=== PATIENT | female | born 1945 | race Caucasian/White ===

== ENCOUNTER 2017-06-11 11:56 | Outpatient (CLI) | payer MEDICARE, OTHER ==
--- NOTE | 2017-06-12 15:25 | Mammography Report ---
DIGITAL SCREENING MAMMOGRAM: 06/11/2017 CLINICAL INDICATION: A 71-year-old for screening. COMPARISON: 06/2014, 05/2013, 01/2012, 12/2010 TECHNIQUE: Routine CC and MLO projections were obtained of the breasts. FINDINGS: Parenchymal tissue within the breasts is predominantly fatty replaced. There are no domina nt masses, suspicious microcalcifications, or secondary signs of malignancy. In comparison to the pre vious studies, there are no significant changes. IMPRESSION: NO MAMMOGRAPHIC EVIDENCE OF MALIGNANCY. NO SIGNIFICANT INTERVAL CHANGES. RECOMMENDATION: Screening mammography is recommended annually. BIRADS category 1 - negative. STANDARD QUALIFYING STATEMENTS 1. This examination was reviewed with the aid of Computed-Aided Detection (CAD). 2. A negative or benign imaging report should not delay biopsy if clinically suspicious findings are present. Consider surgical consultation if warranted. More than 5% of cancers are not identified by i maging. 3. Dense breasts may obscure an underlying neoplasm. JOB #: [id number] EXT JOB #:[id number]
== END 2017-06-11 11:57 | disposition home or self-care (01) ==
LOC: DI.N 11:56
PROVIDERS: ATTEND Nurse Practitioner Gerontology
DX: Z12.31 Encounter for screening mammogram for malignant neoplasm of breast (principal)
CPT/HCPCS: 77067

== ENCOUNTER 2017-06-18 07:33 | Emergency (ER) | payer MEDICARE, OTHER ==
[2017-06-18] MEDS ORDERED: SODIUM CHLORIDE 0.9% 1,000 ML IV ONE (08:11)
[2017-06-18] MEDS ORDERED: ONDANSETRON 4 MG/2 ML VIAL IVP STA (08:11)
[2017-06-18] MEDS ORDERED: LIDOCAINE VISCOUS 2% 15 ML UDC MM STA ×2 (08:12→09:43)
[2017-06-18] MEDS ORDERED: MAG HYDROX/AL HYDROX/SIMETH 30 ML UDC PO STA ×2 (08:12→09:43)
--- NOTE | 2017-06-18 08:14 | ED Physician Documentation ---
PD HPI ABD PAIN - Stated complaint Stated Complaint: ABD PX - Chief complaint Chief Complaint: Abd Pain - History obtained from History obtained from: Patient, Family - History of Present Illness Timing - onset: Enter time (1899), Last night Timing - duration: Hours Timing - details: Abrupt onset, Still present Quality: Sharp, Pain Location: Epigastric Improved by: Other (nothing) Worsened by: Palpation Associated symptoms: Nausea, Vomiting, Hematemesis Similar symptoms before: No diagnosis Recently seen: Not recently seen - Additional information Additional information: 71-year-old female with a history of osteoarthritis has developed epigastric pain beginning at 7:00 last night. She states that she ate dinner about 630 and she also indicates that earlier in the day she had taken some Aleve. She has had a similar episode of pain about 2 weeks ago and this resolves with Tums. She tried a Tums last night without relief. The pain is severe she rates it as a 10 out of 10.She does have known gallstones but she does not have prior episodes of gallstone pain. Review of Systems Constitutional: denies: Fever Eyes: denies: Decreased vision Ears: denies: Ear pain Nose: denies: Congestion Throat: denies: Sore throat Cardiac: denies: Chest pain / pressure, Palpitations Respiratory: denies: Dyspnea, Cough GI: reports: Abdominal Pain, Nausea, Vomiting : denies: Dysuria, Frequency Skin: denies: Rash Musculoskeletal: reports: Extremity pain. denies: Neck pain, Back pain Neurologic: denies: Generalized weakness, Focal weakness, Numbness PD PAST MEDICAL HISTORY - Past Medical History Past Medical History: No - Past Surgical History Past Surgical History: Yes - Present Medications Home Medications: Ambulatory Orders Medication Instructions Recorded Confirmed Calcium Carbonate [[id number]] 06/18/17 Sucralfate [Carafate] 1 gm PO ACHS #300 ml 06/18/17 - Allergies Allergies/Adverse Reactions: Allergies Allergy/AdvReac Type Severity Reaction Status Date / Time No Known Drug Allergies Allergy Verified 06/18/17 07:51 - Social History Does the pt smoke?: No Smoking Status: Never smoker - Immunizations Immunizations are current?: Yes PD ED PE NORMAL - Vitals Vital signs reviewed: Yes (Hypertensive) - General General: No acute distress, Well developed/nourished, Other (The patient does not have any facial expression of pain.) - HEENT HEENT: Atraumatic, PERRL - Neck Neck: Supple, no meningeal sign - Cardiac Cardiac: RRR, No murmur - Respiratory Respiratory: No respiratory distress, Clear bilaterally - Abdomen Abdomen: Soft, Other (Mild epigastric tenderness and no right upper quadrant tenderness to palpation.) - Back Back: No CVA TTP, No spinal TTP - Derm Derm: Normal color, Warm and dry, No rash - Extremities Extremities: No deformity, No edema - Neuro Neuro: No motor deficit, No sensory deficit - Psych Psych: Normal mood, Normal affect Results - Vitals Vitals: Vital Signs - 24 hr 06/18/17 06/18/17 06/18/17 07:51 08:58 10:09 Temperature 36.6 C Heart Rate 87 68 90 Respiratory 16 14 14 Rate Blood Pressure 162/90 H 151/78 H 134/70 H O2 Saturation 97 100 97 Oxygen O2 Source Room air - EKG (time done) 0835 Rate: Rate (enter#) (79) Rhythm: NSR Intervals: Prolonged QT (borderline) Compare to prior EKG: Unchanged from prior EKG (09-12-16) Computer interpretation: Agree with computer - Labs Labs: Laboratory Tests 06/18/17 06/18/17 06/18/17 08:30 08:30 08:30 WBC 12.6 H RBC 4.74 Hgb 13.7 Hct 40.1 MCV 84.6 MCH 28.8 MCHC 34.1 RDW 13.4 Plt Count 255 MPV 7.9 Neut # 10.0 H Lymph # 1.3 L Bullitt # 1.1 H Eos # 0.0 Baso # 0.1 Absolute Nucleated RBC 0.00 Nucleated RBC % 0.0 Sodium 136 Potassium 3.6 Chloride 100 L Carbon Dioxide 26 Anion Gap 10.0 BUN 10 Creatinine 0.6 Estimated GFR (MDRD) 99 Glucose 106 H Calcium 9.7 Total Bilirubin 0.8 AST 23 ALT 20 Alkaline Phosphatase 63 Troponin I < 0.04 Total Protein 7.0 Albumin 4.3 Globulin 2.7 Albumin/Globulin Ratio 1.6 Lipase 21 L Procedures - Bedside sono Bedside sono by EMP: With use of bedside ultrasound the right upper quadrant is examined the patient does have multiple stones in the gallbladder wall is not thickened the there is no pericholecystic fluid and the gallbladder is sonographically nontender. - IVC sono (time) 0814 Bedside IVC sono: IVC measures (cm) (0.98), Dehydration PD MEDICAL DECISION MAKING - ED course Complexity details: reviewed old records, reviewed results, re-evaluated patient , considered differential, d/w patient, d/w family ED course: 71-year-old female who takes some Naprosyn periodically for osteoarthritis appears to have had nonsteroidal induced gastritis. She does get minimal relief with the initial viscous lidocaine Mylanta and more substantial relief with the second dose that included Carafate as well. She is given pantoprazole 40 mg intravenously and instructed to discontinue the use of the Naprosyn and we will put her on some Carafate and Nexium. Departure - Departure Disposition: 01 Home, Self Care Clinical Impression: Gastritis Qualifiers: Gastritis type: other gastritis Chronicity: acute Gastritis bleeding: with bleeding Qualified Code(s): K29.01 - Acute gastritis with bleeding Condition: Stable Instructions: ED PUD Vs Gastritis Follow-Up: Kathia Mejia ARNP [Primary Care Provider] - Prescriptions: Sucralfate [Carafate] 1 gm PO ACHS #300 ml Comments: Today it appears your abdominal pain is related to taking Naprosyn. Stop taking the Naprosyn for now and take Carafate before meals and at bedtime for the next 10 days. In addition take a medication to reduce the acid in her stomach. There are a number of medications available over the counter including Pepcid AC and Nexium.
[2017-06-18] MEDS ORDERED: MAG HYDROX/AL HYDROX/SIMETH 30 ML UDC ONE ×2 (08:31→09:54)
[2017-06-18] MEDS ORDERED: LIDOCAINE VISCOUS 2% 15 ML UDC MM ONE ×2 (08:31→10:00)
[2017-06-18] MEDS ORDERED: ONDANSETRON 4 MG/2 ML VIAL ONE (08:31)
[2017-06-18 08:47] LABS: BASOPHILS # (AUTO) 0.1 10^3/uL (0.0-0.1); BASOPHILS % (AUTO) 0.5 %; EOSINOPHILS % (AUTO) 0.4 %; HCT - HEMATOCRIT 40.1 % (37.0-47.0); HGB - HEMOGLOBIN 13.7 g/dL (12.0-16.0); LYMPHOCYTES # (AUTO) 1.3 10^3/uL (1.5-3.5); LYMPHOCYTES % (AUTO) 10.4 %; MEAN CORPUSCULAR HEMOGLOBIN 28.8 pg (27.0-31.0); MEAN CORPUSCULAR HGB CONC 34.1 g/dL (32.0-36.0); MEAN CORPUSCULAR VOLUME 84.6 fL (81.0-99.0); MEAN PLATELET VOLUME 7.9 fL (7.9-10.8); MONOCYTES # (AUTO) 1.1 10^3/uL (0.0-1.0); NEUTROPHILS % (AUTO) 79.7 %; RED BLOOD COUNT 4.74 10^6/uL (4.20-5.40); RED CELL DISTRIBUTION WIDTH 13.4 % (12.0-15.0); UNCORRECTED WHITE BLOOD COUNT 12.6 x10^3/uL; WHITE BLOOD COUNT 12.6 x10^3/uL (4.8-10.8)
[2017-06-18 08:58] LABS: ALBUMIN/GLOBULIN RATIO 1.6 (1.0-2.2); BILIRUBIN,TOTAL 0.8 mg/dL (0.2-1.0); CALCIUM 9.7 mg/dL (8.5-10.3); CREATININE 0.6 mg/dL (0.4-1.0); POTASSIUM 3.6 mmol/L (3.5-5.0)
[2017-06-18] MEDS ORDERED: PHENobarbital 65 MG/ML VIAL IVP STA (09:20)
[2017-06-18] MEDS ORDERED: SUCRALFATE 1 GM/10 ML UDC PO STA (09:43)
[2017-06-18] MEDS ORDERED: PANTOPRAZOLE 40 MG VIAL IVP STA (09:43)
[2017-06-18] MEDS ORDERED: SUCRALFATE 1 GM/10 ML UDC ONE (09:54)
[2017-06-18] MEDS ORDERED: LIDOCAINE 2% 10 ML MDV ONE (09:54)
[2017-06-18] MEDS ORDERED: PANTOPRAZOLE 40 MG VIAL ONE (09:55)
[2017-06-18 10:14] VITALS: BP 134/70
[2017-06-18] MEDS ORDERED: SODIUM CHLORIDE 0.9% IV SCH (11:00)
[2017-06-18] MEDS ORDERED: PHENOBARBITAL IV SCH (11:00)
== END 2017-06-18 10:53 | disposition home or self-care (01) ==
LOC: ED 07:33
DX: K29.01 Acute gastritis with bleeding (principal); M19.90 Unspecified osteoarthritis, unspecified site
CPT/HCPCS: 36415; 80053; 83690; 84484; 85025; 93005; 96361; 96374; 96375; 99284; A9270

== ENCOUNTER 2017-09-10 08:00 | Outpatient (CLI) | payer MEDICARE, OTHER ==
[2017-09-10 13:05] LABS: CHOL/HDL RATIO 3.3 (<4.4); CHOLESTEROL 246 mg/dL; HDL CHOLESTEROL 74 mg/dL; LDL CHOLESTEROL,CALCULATED 138 mg/dL; LDL/HDL RATIO 1.9 (<4.4); VLDL CHOLESTEROL 34 mg/dL
== END 2017-09-10 08:01 | disposition home or self-care (01) ==
LOC: LAB.N 08:00
PROVIDERS: ATTEND Nurse Practitioner Gerontology
DX: E78.5 Hyperlipidemia, unspecified (principal); Z13.220 Encounter for screening for lipoid disorders
CPT/HCPCS: 36415; 80061; 83721

== ENCOUNTER 2018-02-24 11:54 | Outpatient (CLI) | payer MEDICARE, OTHER ==
--- NOTE | 2018-02-24 12:58 | XRAY Report ---
Procedure Date: 02/24/2018 Accession Number: [id number] / [id number] Procedure: XRN - Knee 3 View LT CPT Code: FULL RESULT: EXAM: Knee 3 View LT DATE: 02/24/2018 12:27 PM CLINICAL HISTORY: CERVICALGIA, KNEE JOINT PX LEFT COMPARISON: 10/01/2010, MRI 10/10/2010 TECHNIQUE: 3 views. FINDINGS: Bones: Medial left knee hemiarthroplasty. No evidence of fracture or hardware complication. 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 Joints: Medial left knee hemiarthroplasty. Moderate degenerative changes in the lateral and patellofemoral compartments. Soft Tissues: Normal. No soft tissue swelling. IMPRESSION: Postoperative changes of medial left hemiarthroplasty. Moderate degenerative changes in the other compartments. No evidence of fracture or hardware complication. RADIA
--- NOTE | 2018-02-24 13:00 | XRAY Report ---
Procedure Date: 02/24/2018 Accession Number: [id number] / [id number] Procedure: XRN - Cervical Spine 2 View CPT Code: FULL RESULT: EXAM: Cervical Spine 2 View DATE: 02/24/2018 12:27 PM CLINICAL HISTORY: cervicalgia COMPARISON: None. TECHNIQUE: 3 views. FINDINGS: Alignment: Normal. No spondylolisthesis or scoliosis. Bones: The cervical vertebral bodies and posterior elements are well visualized from the skull base through C7-T1. No fractures or bone lesions. Disks: Degenerative disc disease, mild. Facets: Moderate facet arthropathy. Soft Tissues: Normal. No prevertebral soft tissue swelling. The visualized lung apices are clear. IMPRESSION: Mild degenerative disc disease and moderate facet arthropathy. No evidence of fracture. RADIA
== END 2018-02-24 11:55 | disposition home or self-care (01) ==
LOC: DI.N 11:54
PROVIDERS: ATTEND Nurse Practitioner
DX: M50.30 Other cervical disc degeneration, unspecified cervical region (principal); M25.562 Pain in left knee; Z96.652 Presence of left artificial knee joint
CPT/HCPCS: 72040

== ENCOUNTER 2018-03-03 11:33 | Outpatient (CLI) | payer MEDICARE, OTHER | END 2018-03-03 11:34 | disposition home or self-care (01) | LOC: LAB 11:33 | PROVIDERS: ATTEND Nurse Practitioner Gerontology | DX: R21 Rash and other nonspecific skin eruption (principal); T63.4 Toxic effect of venom of other arthropods | CPT/HCPCS: 36415; 81599; 87798 ==

== ENCOUNTER 2018-06-15 11:27 | Outpatient (CLI) | payer MEDICARE, OTHER ==
--- NOTE | 2018-06-16 14:12 | Mammography Report ---
Reason: SCREENING MAMMO Procedure Date: 06/15/2018 Accession Number: [id number] / [id number] Procedure: MGN - Screening Mammo Dig Bilat CPT Code: FULL RESULT: EXAM: Screening Mammo Dig Bilat DATE: 06/15/2018 11:46 AM CLINICAL HISTORY: Routine screening TECHNIQUE: Bilateral CC and MLO views were obtained. COMPARISON: 06/11/2017, 07/14/2014, 05/28/2013 and 02/21/2012 FINDINGS: There is extensive fatty replacement of the breast tissue. There is no interval change. No suspicious masses, clustered microcalcifications, or regions of architectural distortion are identified. IMPRESSION: Negative examination RECOMMENDATION: Routine annual screening unless otherwise clinically indicated. BIRADS CATEGORY 1: Negative STANDARD QUALIFYING STATEMENTS: 1. This examination was reviewed with the aid of Computer-Aided Detection (CAD). 2. A negative or benign imaging report should not delay biopsy if clinically suspicious findings are present. Consider surgical consultation if warrented. More than 5% of cancers are not identified by imaging. 3. Dense breasts may obscure an underlying neoplasm.
== END 2018-06-15 11:28 | disposition home or self-care (01) ==
LOC: DI.N 11:27
DX: Z12.31 Encounter for screening mammogram for malignant neoplasm of breast (principal)
CPT/HCPCS: 77067

== ENCOUNTER 2019-07-09 10:24 | Outpatient (CLI) | payer MEDICARE, OTHER ==
--- NOTE | 2019-07-09 10:56 | Mammography Report ---
Reason: ROUTINE MAMMO Procedure Date: 07/09/2019 Accession Number: [id number] / [id number] Procedure: MGN - Screening Mammo Dig Bilat CPT Code: Final Report FULL RESULT: EXAM: Screening Mammo Dig Bilat DATE: 07/09/2019 10:49 AM CLINICAL HISTORY: Routine screening. No reported personal history of breast cancer. History of breast cancer cousin age 56. TECHNIQUE: (B) - Bilateral CC and MLO views were obtained. COMPARISON: 06/15/2018 through 05/28/2013. PARENCHYMAL PATTERN: (A) - The breasts demonstrate scattered fibroglandular densities bilaterally. FINDINGS: Bilateral breasts: There are no suspicious masses, calcifications, or areas of distortion. IMPRESSION: Negative examination. BI-RADS category 1. RECOMMENDATION: (ANNUAL) - Recommend routine annual screening mammography. BI-RADS CATEGORY: (1) - Negative. STANDARD QUALIFYING STATEMENTS: 1. This examination was not reviewed with the aid of Computer-Aided Detection (CAD). 2. A negative or benign imaging report should not preclude biopsy if clinically suspicious findings are present. 3. Dense breasts may obscure an underlying neoplasm. 4. This examination was reviewed without the aid of 3D breast imaging (tomosynthesis).
== END 2019-07-09 10:25 | disposition home or self-care (01) ==
LOC: DI.N 10:24
DX: Z12.31 Encounter for screening mammogram for malignant neoplasm of breast (principal); Z80.3 Family history of malignant neoplasm of breast
CPT/HCPCS: 77067

== ENCOUNTER 2020-12-08 08:13 | Outpatient (CLI) | payer MEDICARE, OTHER ==
--- NOTE | 2020-12-13 14:23 | DEXA Report ---
PROCEDURE: Dexa Spine and/or Hip INDICATIONS: MENOPAUSE TECHNIQUE: Dual energy x-ray absorptiometry (DXA) was performed on a [employer] System. Regions measur ed are the AP Spine, femoral neck, and if needed forearm. COMPARISON: None. FINDINGS: Lumbar Spine: Bone Mineral Density 0.923 g/cm/cm,T score -2.1, osteopenia Left Hip: Bone Mineral Density 0.89 g/cm/cm,T score -1.0, low normal Left Femoral Neck: Bone Mineral Density 0.815 g/cm/cm, T score -1.6, osteopenia (T score greater or equal to -1.0: NORMAL) (T score from -1.1 to -2.4: OSTEOPENIA) (T score less than or equal to -2.5 to: OSTEOPOROSIS) Impression: Osteopenia Patients with diagnosis of osteoporosis or osteopenia should have regular bone mineral density assess ment. For those eligible for Medicare, routine testing is allowed once every 2 years. Testing frequ ency can be increased for patients who have rapidly progressing disease or for those who are receivin g medical therapy to restore bone mass. Reviewed by: James Heath MD on 12/08/2020 9:17 AM PDT Approved by: James Heath MD on 12/08/2020 9:17 AM PDT Station ID: [id number]
== END 2020-12-08 08:14 | disposition home or self-care (01) ==
LOC: DI 08:13
PROVIDERS: ATTEND Family Medicine
DX: M85.89 Other specified disorders of bone density and structure, multiple sites (principal)

== ENCOUNTER 2020-12-08 08:16 | Outpatient (CLI) | payer MEDICARE, OTHER ==
--- NOTE | 2020-12-11 09:24 | Mammography Report ---
BILATERAL DIGITAL SCREENING MAMMOGRAM 3D/2D: 12/08/2020 CLINICAL: Routine screening. Comparison is made to exams dated: 07/09/2019 mammogram, 06/15/2018 mammogram, 06/11/2017 mammogram, 07/14/2014 mammogram, and 05/28/2013 mammogram - [facility]. The tissue of both br easts is predominantly fatty. No significant masses, calcifications, or other findings are seen in either breast. There has been no significant interval change. IMPRESSION: NEGATIVE There is no mammographic evidence of malignancy. A 1 year screening mammogram is recommended. This exam was interpreted at Station ID: [id number]. NOTE: For mammograms, a report in lay terms will be sent to the patient. Approximately 15% of breast malignancies will not be visualized mammographically. In the management of a palpable breast mass, a negative mammogram must not discourage biopsy of a clinically suspicious lesion. Electronically Signed By: Alfred Christianson M.D. slc/penrad:12/08/2020 11:16:31 ACR BI-RADS Category 1: Negative 3341F PARENCHYMAL PATTERN: (F) - The breast(s) demonstrate(s) diffuse fatty replacement. BI-RADS CATEGORY: (1) - 1 RECOMMENDATION: (ANNUAL) - Recommend routine annual screening mammography. [id number] 1 year screening LATERALITY: (B)
== END 2020-12-08 08:17 | disposition home or self-care (01) ==
LOC: DI 08:16
PROVIDERS: ATTEND Family Medicine
DX: Z12.31 Encounter for screening mammogram for malignant neoplasm of breast (principal)